=== PATIENT | male | born 1955 | race Two or more races ===

== ENCOUNTER 2019-04-19 12:36 | Outpatient (CLI) | payer OTHER ==
[~2019-04-19] VITALS: Ht 172.7 cm; Wt 87.1 kg
== END 2019-04-19 13:57 | disposition home or self-care (01) ==
LOC: OFIC 805 12:36
DX: H69.81 Other specified disorders of Eustachian tube, right ear (principal); H93.8X1 Other specified disorders of right ear; H91.8X1 Other specified hearing loss, right ear

== ENCOUNTER → 2019-11-28 | Outpatient (CLI) | payer OTHER | END | disposition home or self-care (01) | LOC: OFIC 805 09:07 | PROVIDERS: ATTEND Otolaryngology | DX: G44.89 Other headache syndrome (principal); H93.13 Tinnitus, bilateral; H90.3 Sensorineural hearing loss, bilateral ==

== ENCOUNTER 2019-12-27 12:17 | Outpatient (CLI) | payer OTHER | END 2019-12-27 13:20 | disposition home or self-care (01) | LOC: OFIC 805 12:17 | PROVIDERS: ATTEND Otolaryngology | DX: H90.3 Sensorineural hearing loss, bilateral (principal) ==